=== PATIENT | female | born 1965 | race American Indian/Alaskan Native ===

== ENCOUNTER 2017-10-16 15:34 | Outpatient (CLI) | payer OTHER ==
--- NOTE | 2017-10-17 14:10 | Mammography Report ---
BILATERAL DIGITAL SCREENING MAMMOGRAM with CAD: 10/16/17 15:34:00 CLINICAL: Routine screening. COMPARISON:11/11/15 FINDINGS: The breasts are heterogeneously dense, which may obscure small masses. An irregular left upper outer breast mass and a left inner asymmetry on the CC view require additional imaging.The right breast is negative. IMPRESSION: Left upper outer breast mass and left asymmetry requiring further workup. BI-RADS CATEGORY: 0 -- Additional Imaging Evaluation Required RECOMMENDATION: Recall for left ML and spot magnification MLO and CC views and left breast ultrasound. ACR BI-RADS MAMMOGRAPHIC CODES: 0 = Needs additional imaging evaluation; 1 = Negative; 2 = Benign; 3 = Probably benign; 4 = Suspicious; 5 = Malignant; 6 = Known biopsy-proven malignancy COMMENT: 1. Dense breast tissue, i.e., adenosis, fibrocystic changes, etc., may obscure an underlying neoplasm. 2. Approximately 10% of cancers are not detected with mammography. 3. A negative mammography report should not delay biopsy if a clinically suspicious mass is present. COMMENT: Patient follow-up letters are generated via our [employer] application.
== END 2017-10-16 15:35 | disposition home or self-care (01) ==
LOC: SPVWC 15:34
PROVIDERS: ATTEND Family Medicine
DX: Z12.31 Encounter for screening mammogram for malignant neoplasm of breast (principal)
CPT/HCPCS: 77067

== ENCOUNTER 2017-10-25 10:25 | Outpatient (CLI) | payer OTHER ==
--- NOTE | 2017-10-25 14:44 | Ultrasound Report ---
LEFT DIGITAL DIAGNOSTIC MAMMOGRAM and LEFT BREAST ULTRASOUND: 10/25/17 10:25:00 CLINICAL: Recalled for asymmetry. COMPARISON:10/16/17 screening FINDINGS: ML and spot magnification MLO and CC views were performed. An irregular upper outer mass persists on the spot views and measures approximately 7.0 x 4.8 x 2.9 cm.No associated calcifications and no architectural distortion. Ultrasound of the left breast (including all four quadrants and the retroareolar area) was performed. An irregular solid hypoechoic mass at 2 o'clock 8 cm from the nipple correlates with the mammographic mass and measures approximately 4.3 x 3.9 x 2.7 cm. 2 additional masses are identified in the vicinity and measure 1.0 x 0.8 cm and 0.8 x 0.7 x 0.8 cm. Ultrasound of the left axilla demonstrates several left axillary lymph nodes with central fat and benign morphology. No suspicious lymph nodes. IMPRESSION: 1. Highly suspicious left upper outer left breast masses with a dominant mass measuring at least 4.3 cm by ultrasound and 7 cm on the mammogram. 2. No suspicious lymph nodes. BI-RADS CATEGORY: 5 - - Highly Suggestive of Malignancy RECOMMENDATION: Ultrasound guided needle core biopsy of the left breast. I discussed the findings and the recommendation for needle core biopsy with the patient at the time of the examination. ACR BI-RADS MAMMOGRAPHIC CODES: 0 = Needs additional imaging evaluation; 1 = Negative; 2 = Benign; 3 = Probably benign; 4 = Suspicious; 5 = Malignant; 6 = Known biopsy-proven malignancy COMMENT: 1. Dense breast tissue, i.e., adenosis, fibrocystic changes, etc., may obscure an underlying neoplasm. 2. Approximately 10% of cancers are not detected with mammography. 3. A negative mammography report should not delay biopsy if a clinically suspicious mass is present. COMMENT: Patient follow-up letters are generated via our [employer] application.
== END 2017-10-25 10:26 | disposition home or self-care (01) ==
LOC: SPVWC 10:25
PROVIDERS: ATTEND Family Medicine
DX: N63.21 Unspecified lump in the left breast, upper outer quadrant (principal)

== ENCOUNTER 2017-11-01 12:48 | Outpatient (CLI) | payer OTHER ==
--- NOTE | 2017-11-01 14:36 | Mammography Report ---
LEFT DIGITAL DIAGNOSTIC MAMMOGRAM: 11/01/17 12:48:00 CLINICAL: For clip placement immediately status post ultrasound biopsy. COMPARISON:10/25/17 FINDINGS: A biopsy clip is now identified within the irregular outer breast mass at 2:30-3:00 o'clock12 cm from the nipple. IMPRESSION: Concordant clip placement status post ultrasound biopsy. BI-RADS CATEGORY: 5 - - Highly Suggestive of Malignancy Pathology pending.
--- NOTE | 2017-11-01 14:56 | Ultrasound Report ---
ULTRASOUND GUIDED NEEDLE CORE BIOPSY LEFT BREAST WITH CLIP PLACEMENT: 11/01/17 13:00:00 CLINICAL: A 4 cm highly suspicious left breast mass at 2 to 3 o'clock. COMPARISON :10/25/17 FINDINGS: The procedure was explained to the patient and informed consent was obtained. Ultrasound demonstrated the irregular solid hypoechoic mass. The mass is palpable and is at 3 o'clock with the patient lying supine with her arm at her side. I marked the breast with a felt tip marker and a time out was called. The skin was prepped with Betadine and anesthetized with 1% lidocaine. Needle core biopsy was performed through a tiny dermatotomy using ultrasound guidance, 2% lidocaine with epinephrine for deep anesthesia and a 14-gauge Achieve biopsy device. 3 cores were obtained and placed in formalin. A clip was deployed within the mass. The patient tolerated the procedure well and there were no apparent complications. Hemostasis was achieved with minimal pressure and a sterile dressing was applied. A two view mammogram demonstrated concordant placement of the clip. She left the department in good condition and was given instructions for wound care and followup. IMPRESSION: Uncomplicated ultrasound guided needle core biopsy with clip placement left breast. BIRADS 5 - - Highly Suggestive of Malignancy Pathology pending.
== END 2017-11-01 12:49 | disposition home or self-care (01) ==
LOC: SPVWC 12:48
PROVIDERS: ATTEND Family Medicine
DX: C50.412 Malignant neoplasm of upper-outer quadrant of left female breast (principal)
CPT/HCPCS: 88305; 88341; 88342; 88361